=== PATIENT | male | born 1965 | race Caucasian/White ===

== ENCOUNTER 2016-09-09 14:22 | Inpatient (IN) | payer MEDICAID ==
[2016-09-09] MEDS ORDERED: Sodium Chloride 0.9% 1,000 ML IV ONE (15:06)
--- NOTE | 2016-09-09 15:13 | ED Physician Chart ---
Chief Complaint/HPI - Patient Information Date Seen:: 09/09/16 Time Seen:: 15:00 Chief Complaint:: diarrhea History of Present Illness:: Patient has had three times watery diarrhea since yesterday. No fever, vomiting , abdominal pain. Allergies:: Allergies Allergy/AdvReac Type Severity Reaction Status Date / Time No Known Allergies Allergy Verified 09/09/16 14:43 Vitals:: Vital Signs - 8 hr 09/09/16 14:37 Temp 98.7 F HR 83 RR 16 O2 Sat % 99 Historian:: Patient Review:: Nurse's Note Reviewed Review of Systems - Review of Systems General/Constitutional: No fever, No chills Skin: No skin lesions Head: No headache Eyes: No loss of vision ENT: No earache Neck: No neck pain Cardio Vascular: No chest pain, No palpitations, No PND Pulmonary: No SOB GI: Diarrhea G/U: No dysuria, No frequency, No hematuria Musculoskeletal: No bone or joint pain, No muscle pain Psychiatric: Prior psych history Hematopoietic: No bruising Allergic/Immuno: No urticaria, No angioedema Neurological: No syncope Past Medical History - Past Medical History Past Medical History: No significant medical hx Family History: Other (brother recently had a CVA) Social History: Smoker, No Alcohol Surgical History: other (dental extractions) Psychiatricy History: Schizophrenia Medication: Reviewed Family Medical History - Family Member Mother History Unknown: Yes Physical Exam - Physical Examination General/Constitutional: Well-developed, well-nourished, Alert, No distress Head: Atraumatic Eyes: Lids, conjuctiva normal, PERRL Skin: Nl inspection, No rash, No skin lesions, No ecchymosis, Well hydrated, No lymphadenopathy ENMT: External ears, nose nl, TM canals nl, Nasal exam nl Other ENMT comments:: partially edentulous; 4/4 peridontal disease Neck: No nuchal rigidity Respiratory: Clear to Auscultation, No Wheeze/Rhonchi/Rales Cardio Vascular: RRR, No murmur, gallop, rubs, NL S1 S2 GI: No tenderness/rebounding/guarding, No organomegaly, No hernia, Normal BS's, Nondistended : No CVA tenderness Extremities: Normal digits & nails Neuro/Psych: No focal deficits Misc: Normal back Labs/Radiology/EKG Results - Lab Results Results: Laboratory Results - last 24 hr 09/09/16 09/09/16 09/09/16 14:35 15:11 15:11 WBC 9.5 RBC 5.63 Hgb 16.9 Hct 49.6 H MCV 88.0 MCH 30.0 MCHC Differential 34.1 RDW 12.3 Plt Count 219 MPV 8.9 Neutrophils % 64.7 Lymphocytes % 26.5 Monocytes % 6.2 Eosinophils % 2.1 Basophils % 0.5 Sodium 139 Potassium 3.8 Chloride 105 Carbon Dioxide 29.5 Anion Gap 8.3 BUN 12 Creatinine 1.1 Est GFR ( Amer) > 60.0 Est GFR (Non-Af Amer) > 60.0 BUN/Creatinine Ratio 10.9 Glucose 89 Calcium 9.7 Magnesium 2.4 Urine Source RANDOM Urine Color YELLOW Urine Clarity CLEAR Urine pH 5.5 Ur Specific [place] 1.005 Urine Protein NEGATIVE Urine Glucose (UA) NEGATIVE Urine Ketones NEGATIVE Urine Blood NEGATIVE Urine Nitrate NEGATIVE Urine Bilirubin NEGATIVE Urine Urobilinogen 0.2 Ur Leukocyte Esterase NEGATIVE Urine RBC NONE SEEN Urine WBC NONE SEEN Ur Epithelial Cells NONE SEEN Urine Bacteria NONE SEEN ED Septic Shock - . Is Septic Shock (SBP<90, OR Lactate>4 mmol\L) present?: No - <6hrs of presentation: Vital Signs: Vital Signs - 8 hr 09/09/16 14:37 Temp 98.7 F HR 83 RR 16 O2 Sat % 99 Reassessment (Disposition) - Reassessment Reassessment:: admit to observation per Dr. Dumont - Diagnosis Diagnosis:: viral enteritis; diarrhea; schizophrenia - Patient Disposition Admitted to:: Med/Surg Spoke to:: Charles Dumont Admitting Medical Physician:: Charles Dumont Condition at Disposition:: Stable, Improved
[2016-09-09 15:17] LABS: % BASOPHILS 0.5 % (0.0-2.0); % EOSINOPHILS 2.1 % (0.0-5.0); % LYMPHOCYTES 26.5 % (20.0-50.0); % MONOCYTES 6.2 % (2.0-10.0); % NEUTROPHILS 64.7 % (40.0-80.0); HEMATOCRIT 49.6 % (39.0-49.0); HEMOGLOBIN 16.9 gm/dL (13.2-17.3); MEAN CORPUSCULAR HGB CONC 34.1 pg (28.0-36.0); MEAN PLATELET VOLUME 8.9 fl; NEUTROPHILE ABSOLUTE 6.2 Th/cmm (1.8-8.0); PLATELET COUNT 219 Th/cmm (150-400); RED BLOOD COUNT 5.63 Mil/cmm (4.30-5.70); RED CELL DISTRIBUTION WIDTH 12.3 % (11.5-20.0); WHITE BLOOD COUNT 9.5 Th/cmm (4.8-10.8)
[2016-09-09 15:21] LABS: URINE BILIRUBIN NEGATIVE (NEGATIVE); URINE COLOR YELLOW; URINE GLUCOSE (UA) NEGATIVE (NEGATIVE); URINE KETONE NEGATIVE (NEGATIVE)
[2016-09-09 15:22] LABS: URINE BACTERIA NONE SEEN /hpf (NONE SEEN); URINE BLOOD NEGATIVE (NEGATIVE); URINE EPITHELIAL CELLS NONE SEEN /lpf (FEW); URINE PH 5.5; URINE PROTEIN NEGATIVE (NEGATIVE); URINE RBC NONE SEEN /hpf (0-5); URINE UROBILINOGEN 0.2 E.U./dL (0.2 - 1.0); URINE WBC NONE SEEN /hpf (0-5)
[2016-09-09 15:39] LABS: ANION GAP 8.3 (7.0-16.0); BUN - UREA NITROGEN 12 mg/dL (7-25); BUN/CREATININE RATIO 10.9; CALCIUM SERUM 9.7 mg/dL (8.6-10.3); CARBON DIOXIDE 29.5 mEq/L (21.0-31.0); CHLORIDE 105 mEq/L (98-107); CREATININE - SERUM 1.1 mg/dL (0.7-1.3); GLUCOSE 89 mg/dL (70-105); MAGNESIUM 2.4 mg/dL (1.9-2.7); POTASSIUM SERUM 3.8 mEq/L (3.5-5.1); SODIUM SERUM 139 mEq/L (136-145)
[2016-09-10] MEDS ORDERED: Sodium Chloride 0.9% 1,000 ML IV SCH (00:15)
--- NOTE | 2016-09-10 08:09 | General Progress Note ---
Subjective - Review of Systems Service Date: 09/10/16 Subjective: I need something to calm Objective - Results Result Diagrams: 09/09/16 15:11 09/09/16 15:11 Recent Labs: Laboratory Last Values WBC 9.5 Th/cmm (4.8-10.8) 09/09/16 15:11 RBC 5.63 Mil/cmm (4.30-5.70) 09/09/16 15:11 Hgb 16.9 gm/dL (13.2-17.3) 09/09/16 15:11 Hct 49.6 % (39.0-49.0) H 09/09/16 15:11 MCV 88.0 fl (80-99) 09/09/16 15:11 MCH 30.0 pg (26.0-30.0) 09/09/16 15:11 MCHC Differential 34.1 pg (28.0-36.0) 09/09/16 15:11 RDW 12.3 % (11.5-20.0) 09/09/16 15:11 Plt Count 219 Th/cmm (150-400) 09/09/16 15:11 MPV 8.9 fl 09/09/16 15:11 Neutrophils % 64.7 % (40.0-80.0) 09/09/16 15:11 Lymphocytes % 26.5 % (20.0-50.0) 09/09/16 15:11 Monocytes % 6.2 % (2.0-10.0) 09/09/16 15:11 Eosinophils % 2.1 % (0.0-5.0) 09/09/16 15:11 Basophils % 0.5 % (0.0-2.0) 09/09/16 15:11 Sodium 139 mEq/L (136-145) 09/09/16 15:11 Potassium 3.8 mEq/L (3.5-5.1) 09/09/16 15:11 Chloride 105 mEq/L (98-107) 09/09/16 15:11 Carbon Dioxide 29.5 mEq/L (21.0-31.0) 09/09/16 15:11 Anion Gap 8.3 (7.0-16.0) 09/09/16 15:11 BUN 12 mg/dL (7-25) 09/09/16 15:11 Creatinine 1.1 mg/dL (0.7-1.3) 09/09/16 15:11 Est GFR ( Amer) > 60.0 ml/min (>90) 09/09/16 15:11 Est GFR (Non-Af Amer) > 60.0 ml/min 09/09/16 15:11 BUN/Creatinine Ratio 10.9 09/09/16 15:11 Glucose 89 mg/dL (70-105) 09/09/16 15:11 Calcium 9.7 mg/dL (8.6-10.3) 09/09/16 15:11 Magnesium 2.4 mg/dL (1.9-2.7) 09/09/16 15:11 Urine Source RANDOM 09/09/16 14:35 Urine Color YELLOW 09/09/16 14:35 Urine Clarity CLEAR (CLEAR) 09/09/16 14:35 Urine pH 5.5 09/09/16 14:35 Ur Specific [place] 1.005 (1.005-1.030) 09/09/16 14:35 Urine Protein NEGATIVE mg/dL (NEGATIVE) 09/09/16 14:35 Urine Glucose (UA) NEGATIVE mg/dL (NEGATIVE) 09/09/16 14:35 Urine Ketones NEGATIVE mg/dL (NEGATIVE) 09/09/16 14:35 Urine Blood NEGATIVE (NEGATIVE) 09/09/16 14:35 Urine Nitrate NEGATIVE (NEGATIVE) 09/09/16 14:35 Urine Bilirubin NEGATIVE (NEGATIVE) 09/09/16 14:35 Urine Urobilinogen 0.2 E.U./dL (0.2 - 1.0) 09/09/16 14:35 Ur Leukocyte Esterase NEGATIVE (NEGATIVE) 09/09/16 14:35 Urine RBC NONE SEEN /hpf (0-5) 09/09/16 14:35 Urine WBC NONE SEEN /hpf (0-5) 09/09/16 14:35 Ur Epithelial Cells NONE SEEN /lpf (FEW) 09/09/16 14:35 Urine Bacteria NONE SEEN /hpf (NONE SEEN) 09/09/16 14:35 - Physical Exam Vitals and I&O: Vital Signs Temp 97.2 F 09/10/16 04:00 Pulse 66 09/10/16 04:00 Resp 18 09/10/16 04:00 BP 102/72 09/10/16 04:00 Pulse Ox 99 09/10/16 04:00 Intake & Output 09/09/16 09/10/16 09/10/16 18:59 06:59 18:59 Intake Total 120 Output Total 700 Balance -580 Intake: Oral 120 Output: Urine 700 Active Medications: Current Medications Benztropine Mesylate (Cogentin) 1 mg PO BID [facility] Stop: 11/09/16 08:59 Bupropion HCl (Wellbutrin Sr) 150 mg PO DAILY [facility] Stop: 11/09/16 08:59 Haloperidol (Haldol) 5 mg PO DAILY [facility] PRN Reason: Protocol Stop: 11/09/16 08:59 Sodium Chloride (Nacl 0.9%) 1,000 mls @ 75 mls/hr IV .[id number] [facility] Stop: 11/09/16 00:14 Last Admin: 09/10/16 00:59 Dose: 75 mls/hr Pantoprazole Sodium (Protonix) 40 mg PO DAILY [facility] Stop: 11/09/16 08:59 Quetiapine Fumarate (Seroquel) 200 mg PO QDRHS [facility] PRN Reason: Protocol Stop: 11/09/16 00:14 Temazepam (Restoril) 15 mg PO HS [facility] Stop: 11/09/16 20:59 General: Alert, Other (Confused) HEENT: Atraumatic Neck: Supple Cardiovascular: Regular rate Lungs: Clear to auscultation Abdomen: Bowel sounds, Soft, Other (BS increased) Extremities: Other (No edema) Neurological: Normal gait Skin: Other (Warm and dry) Psych/Mental Status: Other (Confused, talkative) Assessment/Plan - Assessment Assessment: Patient is awake, confused, talkative, in no acute distress. Dx: Diarrhea, Dehydration, Schizophrenia. - Plan Plan: Patient in NS, regular diet. Psychiatric consult requested.
[2016-09-10] MEDS: Benztropine 1 MG TAB PO SCH ×2 (08:34→16:22)
[2016-09-10] MEDS: Pantoprazole 40 mg EC Tab PO SCH (08:34)
--- NOTE | 2016-09-10 12:16 | History & Physical ---
CHIEF COMPLAINT: Diarrhea. HISTORY OF PRESENT ILLNESS: This is the case of a 51-year-old male who came to the Emergency Room secondary to his diarrhea. The patient referred that for a few days he is having diarrhea, continuous. He feels weak and tired. PAST MEDICAL HISTORY: The patient has past medical history of schizophrenia. SOCIAL HISTORY: The patient is a resident of [facility]. The patient denies use of alcohol or drugs. PAST SURGICAL HISTORY: Unremarkable. ALLERGIES: No known allergies. MEDICATIONS: Benztropine, bupropion, lorazepam, allopurinol, omeprazole and Seroquel. REVIEW OF SYSTEMS: LUNGS: The patient denies shortness of breath. HEART: The patient denies chest pain. ABDOMEN: The patient referred diarrhea. EXTREMITIES: Unremarkable. PHYSICAL EXAMINATION: GENERAL: Does reveals a fairly nourished and developed male, awake, alert, confused. HEENT: Head is normocephalic and atraumatic. Eyes: Pupils reactive to light. Nose: No evidence of nasal obstruction. Ears: No evidence of any discharge. Mouth: Fairly ____. Some teeth missing. LUNGS: Bilateral air entry. No crackles or wheezing. HEART: Regular rate and rhythm. ABDOMEN: Soft, nontender. Bowel sound is increasing. EXTREMITIES: No edema. NEUROLOGICAL: The patient is awake, alert, confused. Nerves 2-12 grossly intact. SKIN: Unremarkable. IMPRESSION: 1. Diarrhea. 2. Dehydration. 3. Schizophrenia. PLAN: 1. The patient will be admitted in the medical surgical floor. 2. IV normal saline. 3. Regular diet. 4. Consult with Psychiatry. 5. Continue with home medications. 6. CBC, CMP at a.m. JOB# [id number]
[2016-09-11 07:32] LABS: % EOSINOPHILS 2.4 % (0.0-5.0); % LYMPHOCYTES 29.6 % (20.0-50.0); % MONOCYTES 7.8 % (2.0-10.0); % NEUTROPHILS 59.2 % (40.0-80.0); HEMATOCRIT 45.4 % (39.0-49.0); HEMOGLOBIN 15.4 gm/dL (13.2-17.3); MEAN CORPUSCULAR HEMOGLOBIN 29.7 pg (26.0-30.0); MEAN CORPUSCULAR HGB CONC 33.8 pg (28.0-36.0); MEAN PLATELET VOLUME 9.2 fl; NEUTROPHILE ABSOLUTE 5.6 Th/cmm (1.8-8.0); PLATELET COUNT 229 Th/cmm (150-400); RED BLOOD COUNT 5.17 Mil/cmm (4.30-5.70); RED CELL DISTRIBUTION WIDTH 12.2 % (11.5-20.0); WHITE BLOOD COUNT 9.4 Th/cmm (4.8-10.8)
[2016-09-11 07:46] LABS: ALB/GLOB RATIO 1.2 (1.0-1.8); ALKALINE PHOSPHATASE 103 U/L (34-104); ANION GAP 7.6 (7.0-16.0); BILIRUBIN,TOTAL 0.3 mg/dL (0.3-1.0); BUN - UREA NITROGEN 19 mg/dL (7-25); BUN/CREATININE RATIO 15.8; CALCIUM SERUM 9.1 mg/dL (8.6-10.3); CARBON DIOXIDE 26.4 mEq/L (21.0-31.0); CHLORIDE 107 mEq/L (98-107); CREATININE - SERUM 1.2 mg/dL (0.7-1.3); GLUCOSE 104 mg/dL (70-105); SGOT 30 U/L (13-39); SGPT/ALT 47 U/L (7-52); SODIUM SERUM 137 mEq/L (136-145)
[2016-09-11] MEDS: Pantoprazole 40 mg EC Tab PO SCH (09:55)
[2016-09-11] MEDS: Benztropine 1 MG TAB PO SCH ×2 (09:55→18:32)
--- NOTE | 2016-09-11 16:12 | General Progress Note ---
Subjective - Review of Systems Service Date: 09/11/16 Subjective: I am better. Objective - Results Result Diagrams: 09/11/16 06:55 09/11/16 06:55 Recent Labs: Laboratory Last Values WBC 9.4 Th/cmm (4.8-10.8) 09/11/16 06:55 RBC 5.17 Mil/cmm (4.30-5.70) 09/11/16 06:55 Hgb 15.4 gm/dL (13.2-17.3) 09/11/16 06:55 Hct 45.4 % (39.0-49.0) 09/11/16 06:55 MCV 88.0 fl (80-99) 09/11/16 06:55 MCH 29.7 pg (26.0-30.0) 09/11/16 06:55 MCHC Differential 33.8 pg (28.0-36.0) 09/11/16 06:55 RDW 12.2 % (11.5-20.0) 09/11/16 06:55 Plt Count 229 Th/cmm (150-400) 09/11/16 06:55 MPV 9.2 fl 09/11/16 06:55 Neutrophils % 59.2 % (40.0-80.0) 09/11/16 06:55 Lymphocytes % 29.6 % (20.0-50.0) 09/11/16 06:55 Monocytes % 7.8 % (2.0-10.0) 09/11/16 06:55 Eosinophils % 2.4 % (0.0-5.0) 09/11/16 06:55 Basophils % 1.0 % (0.0-2.0) 09/11/16 06:55 Sodium 137 mEq/L (136-145) 09/11/16 06:55 Potassium 4.0 mEq/L (3.5-5.1) 09/11/16 06:55 Chloride 107 mEq/L (98-107) 09/11/16 06:55 Carbon Dioxide 26.4 mEq/L (21.0-31.0) 09/11/16 06:55 Anion Gap 7.6 (7.0-16.0) 09/11/16 06:55 BUN 19 mg/dL (7-25) 09/11/16 06:55 Creatinine 1.2 mg/dL (0.7-1.3) 09/11/16 06:55 Est GFR ( Amer) > 60.0 ml/min (>90) 09/11/16 06:55 Est GFR (Non-Af Amer) > 60.0 ml/min 09/11/16 06:55 BUN/Creatinine Ratio 15.8 09/11/16 06:55 Glucose 104 mg/dL (70-105) 09/11/16 06:55 Calcium 9.1 mg/dL (8.6-10.3) 09/11/16 06:55 Magnesium 2.4 mg/dL (1.9-2.7) 09/09/16 15:11 Total Bilirubin 0.3 mg/dL (0.3-1.0) 09/11/16 06:55 AST 30 U/L (13-39) 09/11/16 06:55 ALT 47 U/L (7-52) 09/11/16 06:55 Alkaline Phosphatase 103 U/L (34-104) 09/11/16 06:55 Total Protein 6.9 gm/dL (6.0-8.3) 09/11/16 06:55 Albumin 3.8 gm/dL (4.2-5.5) L 09/11/16 06:55 Globulin 3.1 gm/dL 09/11/16 06:55 Albumin/Globulin Ratio 1.2 (1.0-1.8) 09/11/16 06:55 TSH 14.64 uIU/ml (0.34-5.60) H 09/11/16 06:55 Urine Source RANDOM 09/09/16 14:35 Urine Color YELLOW 09/09/16 14:35 Urine Clarity CLEAR (CLEAR) 09/09/16 14:35 Urine pH 5.5 09/09/16 14:35 Ur Specific [place] 1.005 (1.005-1.030) 09/09/16 14:35 Urine Protein NEGATIVE mg/dL (NEGATIVE) 09/09/16 14:35 Urine Glucose (UA) NEGATIVE mg/dL (NEGATIVE) 09/09/16 14:35 Urine Ketones NEGATIVE mg/dL (NEGATIVE) 09/09/16 14:35 Urine Blood NEGATIVE (NEGATIVE) 09/09/16 14:35 Urine Nitrate NEGATIVE (NEGATIVE) 09/09/16 14:35 Urine Bilirubin NEGATIVE (NEGATIVE) 09/09/16 14:35 Urine Urobilinogen 0.2 E.U./dL (0.2 - 1.0) 09/09/16 14:35 Ur Leukocyte Esterase NEGATIVE (NEGATIVE) 09/09/16 14:35 Urine RBC NONE SEEN /hpf (0-5) 09/09/16 14:35 Urine WBC NONE SEEN /hpf (0-5) 09/09/16 14:35 Ur Epithelial Cells NONE SEEN /lpf (FEW) 09/09/16 14:35 Urine Bacteria NONE SEEN /hpf (NONE SEEN) 09/09/16 14:35 - Physical Exam Vitals and I&O: Vital Signs Temp 98.8 F 09/11/16 11:27 Pulse 75 09/11/16 11:27 Resp 18 09/11/16 11:27 BP 158/80 09/11/16 11:27 Pulse Ox 97 09/11/16 11:27 Intake & Output 09/10/16 09/11/16 09/11/16 18:59 06:59 18:59 Intake Total 480 Output Total 900 Balance -420 Intake: Oral 480 Output: Urine 900 Other: # Voids 3 Active Medications: Current Medications Benztropine Mesylate (Cogentin) 1 mg PO BID [facility] Stop: 11/09/16 08:59 Last Admin: 09/11/16 09:55 Dose: 1 mg Bupropion HCl (Wellbutrin Sr) 150 mg PO DAILY [facility] Stop: 11/09/16 08:59 Last Admin: 09/11/16 09:55 Dose: 150 mg Haloperidol (Haldol) 5 mg PO DAILY [facility] PRN Reason: Protocol Stop: 11/09/16 08:59 Last Admin: 09/11/16 09:55 Dose: 5 mg Sodium Chloride (Nacl 0.9%) 1,000 mls @ 75 mls/hr IV .[id number] [facility] Stop: 11/09/16 00:14 Last Admin: 09/10/16 00:59 Dose: 75 mls/hr Levothyroxine Sodium (Synthroid) 0.025 mg PO QDAC [facility] Stop: 11/11/16 07:29 Pantoprazole Sodium (Protonix) 40 mg PO DAILY [facility] Stop: 11/09/16 08:59 Last Admin: 09/11/16 09:55 Dose: 40 mg Quetiapine Fumarate (Seroquel) 200 mg PO QDRHS [facility] PRN Reason: Protocol Stop: 11/09/16 00:14 Last Admin: 09/11/16 09:55 Dose: 200 mg Temazepam (Restoril) 15 mg PO HS [facility] Stop: 11/09/16 20:59 Last Admin: 09/10/16 20:36 Dose: 15 mg General: Alert, No acute distress, Other (Confused) HEENT: Atraumatic Neck: Supple Cardiovascular: Regular rate Lungs: Clear to auscultation Abdomen: Bowel sounds, Soft Extremities: Other (No edema) Neurological: Normal gait Skin: Other (Warm and dry) Psych/Mental Status: Other (Confused) Assessment/Plan - Assessment Assessment: Patient is awake, confused, talkative, in no acute distress. Dx: Diarrhea, Dehydration, Schizophrenia. - Plan Plan: Patient improved. He will be discharge
--- NOTE | 2016-09-11 21:11 | Admit Criteria Form ---
Admit Criteria Forms - Admit Criteria Diagnosis: GASTROENTERITIS Clinical Indications for Admission to Inpatient Care (Place 'X' for any and all applicable criteria): Admission is indicated for ANY ONE of the following (1)(2)(3)(4)(5)(6): [X]I. Inpatient admission required rather than observation care (Also use Gastroenteritis: Observation Care as appropriate) because of ANY ONE of the following: [ ]a) Vomiting that is severe or persistent [X]b) Dehydration that is severe or persistent [ ]c) Hemodynamic instability that is severe or persistent [ ]d) Signs of intestinal obstruction or peritonitis [A] [ ]e) Hemolytic uremic syndrome is diagnosed. [ ]f) Absent bowel sounds with complete ileus (2) [ ]g) IV fluid to replace significant ongoing losses (greater than 3 L/m2 per day) [ ]h) Parenteral nutrition regimen that must be implemented on inpatient basis [ ]i) Other condition, treatment or monitoring requiring inpatient admission [ ]II. Suspected severe infection (eg, presence of high fever, severe or bloody diarrhea)(7)(8) [ ]III. Severe abdominal tenderness [ ]IV. Toxic megacolon Extended stay beyond goal length of stay may be needed for(4)(5)(6)(18) [ ]a) Persistent vital sign changes, severe electrolyte imbalance, or ongoing fluid losses that require continued hospitalization [ ]b) Other diagnosed cause for gastrointestinal symptoms (eg, intestinal obstruction,inflammatory bowel disease) that requires continued hospitalization [ ]c) Severe Clostridium difficile infection(8)(22) [ ]d) Bacterial dysentery(7) [ ]e) Radiation gastroenteritis [ ]f) Endoscopy with lesion [ ]g) Clinically significant medical comorbidities that require inpatient care [ ]h) Older patients (65 years or older) [ ]i) Hemolytic uremic syndrome (20) [ ]j) Toxic megacolon The original [facility] [employer] content created by [employer] has been revised. The portions of the content which have been revised are identified through the use of italic text or in bold, and [facility] has neither reviewed nor approved the modified material. All other unmodified content is copyright [facility] [employer]. Please see references footnoted in the original [facility] [employer] edition 2016 Admit Criteria Met?: Yes
[2016-09-12] MEDS: Levothyroxine 0.025 Mg Tab PO SCH (06:40)
[2016-09-12] MEDS: Benztropine 1 MG TAB PO SCH (10:31)
[2016-09-12] MEDS: Pantoprazole 40 mg EC Tab PO SCH (10:31)
--- NOTE | 2016-09-12 11:43 | General Progress Note ---
Subjective - Review of Systems Service Date: 09/12/16 Subjective: I am better. Objective - Results Result Diagrams: 09/11/16 06:55 09/11/16 06:55 Recent Labs: Laboratory Last Values WBC 9.4 Th/cmm (4.8-10.8) 09/11/16 06:55 RBC 5.17 Mil/cmm (4.30-5.70) 09/11/16 06:55 Hgb 15.4 gm/dL (13.2-17.3) 09/11/16 06:55 Hct 45.4 % (39.0-49.0) 09/11/16 06:55 MCV 88.0 fl (80-99) 09/11/16 06:55 MCH 29.7 pg (26.0-30.0) 09/11/16 06:55 MCHC Differential 33.8 pg (28.0-36.0) 09/11/16 06:55 RDW 12.2 % (11.5-20.0) 09/11/16 06:55 Plt Count 229 Th/cmm (150-400) 09/11/16 06:55 MPV 9.2 fl 09/11/16 06:55 Neutrophils % 59.2 % (40.0-80.0) 09/11/16 06:55 Lymphocytes % 29.6 % (20.0-50.0) 09/11/16 06:55 Monocytes % 7.8 % (2.0-10.0) 09/11/16 06:55 Eosinophils % 2.4 % (0.0-5.0) 09/11/16 06:55 Basophils % 1.0 % (0.0-2.0) 09/11/16 06:55 Sodium 137 mEq/L (136-145) 09/11/16 06:55 Potassium 4.0 mEq/L (3.5-5.1) 09/11/16 06:55 Chloride 107 mEq/L (98-107) 09/11/16 06:55 Carbon Dioxide 26.4 mEq/L (21.0-31.0) 09/11/16 06:55 Anion Gap 7.6 (7.0-16.0) 09/11/16 06:55 BUN 19 mg/dL (7-25) 09/11/16 06:55 Creatinine 1.2 mg/dL (0.7-1.3) 09/11/16 06:55 Est GFR ( Amer) > 60.0 ml/min (>90) 09/11/16 06:55 Est GFR (Non-Af Amer) > 60.0 ml/min 09/11/16 06:55 BUN/Creatinine Ratio 15.8 09/11/16 06:55 Glucose 104 mg/dL (70-105) 09/11/16 06:55 Calcium 9.1 mg/dL (8.6-10.3) 09/11/16 06:55 Magnesium 2.4 mg/dL (1.9-2.7) 09/09/16 15:11 Total Bilirubin 0.3 mg/dL (0.3-1.0) 09/11/16 06:55 AST 30 U/L (13-39) 09/11/16 06:55 ALT 47 U/L (7-52) 09/11/16 06:55 Alkaline Phosphatase 103 U/L (34-104) 09/11/16 06:55 Total Protein 6.9 gm/dL (6.0-8.3) 09/11/16 06:55 Albumin 3.8 gm/dL (4.2-5.5) L 09/11/16 06:55 Globulin 3.1 gm/dL 09/11/16 06:55 Albumin/Globulin Ratio 1.2 (1.0-1.8) 09/11/16 06:55 TSH 14.64 uIU/ml (0.34-5.60) H 09/11/16 06:55 Urine Source RANDOM 09/09/16 14:35 Urine Color YELLOW 09/09/16 14:35 Urine Clarity CLEAR (CLEAR) 09/09/16 14:35 Urine pH 5.5 09/09/16 14:35 Ur Specific [place] 1.005 (1.005-1.030) 09/09/16 14:35 Urine Protein NEGATIVE mg/dL (NEGATIVE) 09/09/16 14:35 Urine Glucose (UA) NEGATIVE mg/dL (NEGATIVE) 09/09/16 14:35 Urine Ketones NEGATIVE mg/dL (NEGATIVE) 09/09/16 14:35 Urine Blood NEGATIVE (NEGATIVE) 09/09/16 14:35 Urine Nitrate NEGATIVE (NEGATIVE) 09/09/16 14:35 Urine Bilirubin NEGATIVE (NEGATIVE) 09/09/16 14:35 Urine Urobilinogen 0.2 E.U./dL (0.2 - 1.0) 09/09/16 14:35 Ur Leukocyte Esterase NEGATIVE (NEGATIVE) 09/09/16 14:35 Urine RBC NONE SEEN /hpf (0-5) 09/09/16 14:35 Urine WBC NONE SEEN /hpf (0-5) 09/09/16 14:35 Ur Epithelial Cells NONE SEEN /lpf (FEW) 09/09/16 14:35 Urine Bacteria NONE SEEN /hpf (NONE SEEN) 09/09/16 14:35 - Physical Exam Vitals and I&O: Vital Signs Temp 96.0 F 09/12/16 08:00 Pulse 99 09/12/16 08:00 Resp 18 09/12/16 08:00 BP 129/87 09/12/16 08:00 Pulse Ox 98 09/12/16 08:00 Intake & Output 09/11/16 09/12/16 09/12/16 18:59 06:59 18:59 Intake Total 480 Output Total 800 Balance -320 Intake: Oral 480 Output: Urine 800 Active Medications: Current Medications Benztropine Mesylate (Cogentin) 1 mg PO BID [facility] Stop: 11/09/16 08:59 Last Admin: 09/12/16 10:31 Dose: 1 mg Bupropion HCl (Wellbutrin Sr) 150 mg PO DAILY [facility] Stop: 11/09/16 08:59 Last Admin: 09/12/16 10:33 Dose: 150 mg Haloperidol (Haldol) 5 mg PO DAILY [facility] PRN Reason: Protocol Stop: 11/09/16 08:59 Last Admin: 09/12/16 10:32 Dose: 5 mg Sodium Chloride (Nacl 0.9%) 1,000 mls @ 75 mls/hr IV .[id number] [facility] Stop: 11/09/16 00:14 Last Admin: 09/10/16 00:59 Dose: 75 mls/hr Levothyroxine Sodium (Synthroid) 0.025 mg PO QDAC [facility] Stop: 11/11/16 07:29 Last Admin: 09/12/16 06:40 Dose: 0.025 mg Pantoprazole Sodium (Protonix) 40 mg PO DAILY [facility] Stop: 11/09/16 08:59 Last Admin: 09/12/16 10:31 Dose: 40 mg Quetiapine Fumarate (Seroquel) 200 mg PO QDRHS [facility] PRN Reason: Protocol Stop: 11/09/16 00:14 Last Admin: 09/12/16 10:31 Dose: 200 mg Temazepam (Restoril) 15 mg PO HS [facility] Stop: 11/09/16 20:59 Last Admin: 09/11/16 21:13 Dose: Not Given General: Alert, Cooperative, No acute distress HEENT: Atraumatic Neck: Supple Cardiovascular: Regular rate Lungs: Clear to auscultation Abdomen: Bowel sounds, Soft Extremities: Other (No edema) Neurological: Normal gait Skin: Other (Warm and dry) Psych/Mental Status: Other (Confused) Assessment/Plan - Assessment Assessment: Patient is awake, confused, talkative, in no acute distress. Dx: Diarrhea, Dehydration, Schizophrenia. - Plan Plan: Patient improved. Patient is requesting a new boarding care. He will be discharge tomorrow.
--- NOTE | 2016-09-13 08:54 | General Progress Note ---
Subjective - Review of Systems Service Date: 09/13/16 Subjective: I am better. Objective - Results Result Diagrams: 09/11/16 06:55 09/11/16 06:55 Recent Labs: Laboratory Last Values WBC 9.4 Th/cmm (4.8-10.8) 09/11/16 06:55 RBC 5.17 Mil/cmm (4.30-5.70) 09/11/16 06:55 Hgb 15.4 gm/dL (13.2-17.3) 09/11/16 06:55 Hct 45.4 % (39.0-49.0) 09/11/16 06:55 MCV 88.0 fl (80-99) 09/11/16 06:55 MCH 29.7 pg (26.0-30.0) 09/11/16 06:55 MCHC Differential 33.8 pg (28.0-36.0) 09/11/16 06:55 RDW 12.2 % (11.5-20.0) 09/11/16 06:55 Plt Count 229 Th/cmm (150-400) 09/11/16 06:55 MPV 9.2 fl 09/11/16 06:55 Neutrophils % 59.2 % (40.0-80.0) 09/11/16 06:55 Lymphocytes % 29.6 % (20.0-50.0) 09/11/16 06:55 Monocytes % 7.8 % (2.0-10.0) 09/11/16 06:55 Eosinophils % 2.4 % (0.0-5.0) 09/11/16 06:55 Basophils % 1.0 % (0.0-2.0) 09/11/16 06:55 Sodium 137 mEq/L (136-145) 09/11/16 06:55 Potassium 4.0 mEq/L (3.5-5.1) 09/11/16 06:55 Chloride 107 mEq/L (98-107) 09/11/16 06:55 Carbon Dioxide 26.4 mEq/L (21.0-31.0) 09/11/16 06:55 Anion Gap 7.6 (7.0-16.0) 09/11/16 06:55 BUN 19 mg/dL (7-25) 09/11/16 06:55 Creatinine 1.2 mg/dL (0.7-1.3) 09/11/16 06:55 Est GFR ( Amer) > 60.0 ml/min (>90) 09/11/16 06:55 Est GFR (Non-Af Amer) > 60.0 ml/min 09/11/16 06:55 BUN/Creatinine Ratio 15.8 09/11/16 06:55 Glucose 104 mg/dL (70-105) 09/11/16 06:55 Calcium 9.1 mg/dL (8.6-10.3) 09/11/16 06:55 Magnesium 2.4 mg/dL (1.9-2.7) 09/09/16 15:11 Total Bilirubin 0.3 mg/dL (0.3-1.0) 09/11/16 06:55 AST 30 U/L (13-39) 09/11/16 06:55 ALT 47 U/L (7-52) 09/11/16 06:55 Alkaline Phosphatase 103 U/L (34-104) 09/11/16 06:55 Total Protein 6.9 gm/dL (6.0-8.3) 09/11/16 06:55 Albumin 3.8 gm/dL (4.2-5.5) L 09/11/16 06:55 Globulin 3.1 gm/dL 09/11/16 06:55 Albumin/Globulin Ratio 1.2 (1.0-1.8) 09/11/16 06:55 TSH 14.64 uIU/ml (0.34-5.60) H 09/11/16 06:55 Urine Source RANDOM 09/09/16 14:35 Urine Color YELLOW 09/09/16 14:35 Urine Clarity CLEAR (CLEAR) 09/09/16 14:35 Urine pH 5.5 09/09/16 14:35 Ur Specific [place] 1.005 (1.005-1.030) 09/09/16 14:35 Urine Protein NEGATIVE mg/dL (NEGATIVE) 09/09/16 14:35 Urine Glucose (UA) NEGATIVE mg/dL (NEGATIVE) 09/09/16 14:35 Urine Ketones NEGATIVE mg/dL (NEGATIVE) 09/09/16 14:35 Urine Blood NEGATIVE (NEGATIVE) 09/09/16 14:35 Urine Nitrate NEGATIVE (NEGATIVE) 09/09/16 14:35 Urine Bilirubin NEGATIVE (NEGATIVE) 09/09/16 14:35 Urine Urobilinogen 0.2 E.U./dL (0.2 - 1.0) 09/09/16 14:35 Ur Leukocyte Esterase NEGATIVE (NEGATIVE) 09/09/16 14:35 Urine RBC NONE SEEN /hpf (0-5) 09/09/16 14:35 Urine WBC NONE SEEN /hpf (0-5) 09/09/16 14:35 Ur Epithelial Cells NONE SEEN /lpf (FEW) 09/09/16 14:35 Urine Bacteria NONE SEEN /hpf (NONE SEEN) 09/09/16 14:35 - Physical Exam Vitals and I&O: Vital Signs Temp 97.1 F 09/13/16 08:00 Pulse 83 09/13/16 08:00 Resp 20 09/13/16 08:00 BP 121/72 09/13/16 08:00 Pulse Ox 98 09/13/16 08:00 Active Medications: Current Medications Benztropine Mesylate (Cogentin) 1 mg PO BID MICAH Stop: 11/09/16 08:59 Last Admin: 09/12/16 10:31 Dose: 1 mg Bupropion HCl (Wellbutrin Sr) 150 mg PO DAILY MICAH Stop: 11/09/16 08:59 Last Admin: 09/12/16 10:33 Dose: 150 mg Haloperidol (Haldol) 5 mg PO DAILY MICAH PRN Reason: Protocol Stop: 11/09/16 08:59 Last Admin: 09/12/16 10:32 Dose: 5 mg Sodium Chloride (Nacl 0.9%) 1,000 mls @ 75 mls/hr IV .[id number] MICAH Stop: 11/09/16 00:14 Last Admin: 09/10/16 00:59 Dose: 75 mls/hr Levothyroxine Sodium (Synthroid) 0.025 mg PO QDAC MICAH Stop: 11/11/16 07:29 Last Admin: 09/12/16 06:40 Dose: 0.025 mg Pantoprazole Sodium (Protonix) 40 mg PO DAILY MICAH Stop: 11/09/16 08:59 Last Admin: 09/12/16 10:31 Dose: 40 mg Quetiapine Fumarate (Seroquel) 200 mg PO QDRHS MICAH PRN Reason: Protocol Stop: 11/09/16 00:14 Last Admin: 09/12/16 23:24 Dose: 200 mg Temazepam (Restoril) 15 mg PO HS MICAH Stop: 11/09/16 20:59 Last Admin: 09/12/16 21:19 Dose: 15 mg General: Alert, Cooperative, No acute distress HEENT: Atraumatic Neck: Supple Cardiovascular: Regular rate Lungs: Clear to auscultation Abdomen: Bowel sounds, Soft Extremities: Other (No edema) Neurological: Normal gait Skin: Other (Warm and dry) Psych/Mental Status: Other (Confused) Assessment/Plan - Assessment Assessment: Patient is awake, confused, talkative, in no acute distress. Dx: Diarrhea, Dehydration, Schizophrenia. - Plan Plan: Patient improved. Patient is requesting a new boarding care. He will be discharge today, as soon placement is found.
[2016-09-13] MEDS: Pantoprazole 40 mg EC Tab PO SCH (09:05)
[2016-09-13] MEDS: Levothyroxine 0.025 Mg Tab PO SCH (09:05)
[2016-09-13] MEDS: Benztropine 1 MG TAB PO SCH ×3 (09:05→15:33)
--- NOTE | 2016-09-13 22:49 | Consultation ---
The patient was seen, chart reviewed, discussed with staff. HISTORY OF PRESENT ILLNESS: The patient is a 51-year-old male with a history of schizophrenia. Said he is doing well on medications. Still hearing some voices at times, but not as bad. Said the Haldol helped some with the voices and ____ sleep at nighttime. The patient denied having any depression. The patient has been cooperative on the unit. Has not been aggressive and he reports fair sleep and appetite. PAST PSYCHIATRIC HISTORY: Prior hospitalizations and history of schizophrenia. PAST MEDICAL HISTORY: As per H and P. PSYCHOSOCIAL HISTORY: The patient denied alcohol and drug use. MENTAL STATUS EXAMINATION: The patient is cooperative, makes fair eye contact, missing some teeth, poor dentition. The speech is monotonous. He admits to rare hallucinations, denied having any suicidal thoughts and denies feeling depressed. He is oriented to time, place and person. Thought process ____. The patient has some insight into his problems. ASSESSMENT: Schizophrenia, paranoid type. PLAN: We will continue current dose of Haldol and Seroquel and monitor condition closely. The patient is in the hospital for diarrhea and he has been cooperative. We will follow closely. Thank you for the consultation. JOB# [id number]
--- NOTE | 2016-10-15 23:42 | Discharge Summary ---
CHIEF COMPLAINT: Diarrhea. HISTORY OF PRESENT ILLNESS: This is the case of a 51-year-old male, who came to Emergency Room due to diarrhea, reason why the patient was hospitalized. HOSPITAL COURSE AND TREATMENT: This patient was admitted. He was started on IV normal saline. He had regular diet. Consult with Psychiatry was done. He was continued with home medications. After 4 days in the hospital and due to the improvement of the patient with no more dehydration, no more diarrhea, it was decided the patient received the maximum benefit of hospitalization and he could be sent home. At the moment of the discharge, the patient was awake, alert, in no acute distress. CHAIRMAN PRESIDENT AND CHIEF EXECUTIVE OFFICER IN THIS CASE: Psychiatry, Dr. Trujillo. DIAGNOSES: 1. Diarrhea. 2. Dehydration. 3. Schizophrenia. JOB# [id number]
== END 2016-09-13 15:45 | disposition short-term general hospital (02) | DRG 249 ==
LOC: ER 14:22 → MSI 17:34 → OBSVTOIN 09-13 07:54
PROVIDERS: ADMIT General Practice; ATTEND General Practice
DX: A08.4 Viral intestinal infection, unspecified (principal); F20.0 Paranoid schizophrenia; E86.0 Dehydration; F17.210 Nicotine dependence, cigarettes, uncomplicated; R19.7 Diarrhea, unspecified
CPT/HCPCS: 36415-UA; 80048-TC; 80053-TC; 81001-TC; 83735-TC; 84443-TC; 85025-TC; G0378; J7030; Z7610